=== PATIENT | female | born 1970 | race Two or more races ===

== ENCOUNTER 2017-07-13 16:15 | Inpatient (IN) | payer OTHER ==
[~2017-07-13] VITALS: Ht 149.9 cm; Wt 71.0 kg
--- NOTE | 2017-07-13 16:20 | NUR ---
CODE SEPSIS WAS CALLED BY DR GREEN. CODE SEPSIS PROTOCOL STARTED.
[2017-07-13] MEDS ORDERED: ACETAMINOPHEN 650 MG/20.3 ML LIQUID UDC PO ONE (16:34)
--- NOTE | 2017-07-13 16:36 | NUR ---
PT IS IN ROOM #1A. DR GREEN EVALUATED THE PT.
[2017-07-13] MEDS ORDERED: IBUPROFEN 600 MG TABLET ONE (16:44)
[2017-07-13] MEDS ORDERED: ACETAMINOPHEN ES 500 MG TABLET ONE (16:44)
[2017-07-13] MEDS ORDERED: CEFTRIAXONE 1 G VIAL ONE (16:44)
[2017-07-13] MEDS ORDERED: IBUPROFEN 600 MG TABLET PO ONE (16:45)
[2017-07-13] MEDS ORDERED: IV NS 1000 ML 1,000 ML IV ONE (16:45)
[2017-07-13] MEDS ORDERED: CEFTRIAXONE 1 G in IV DEXTROSE 5% 50 ML IV SCH (16:45)
[2017-07-13 16:46] LABS: BASOPHILS % (AUTO) 0.5 % (0.0-2.0); EOSINOPHILS % (AUTO) 0.6 % (0.0-7.0); HEMATOCRIT 39.1 % (31.2-41.9); HEMOGLOBIN 13.1 g/dL (10.9-14.3); LYMPHOCYTES # (AUTO) 0.8 K/uL (20.0-40.0); LYMPHOCYTES % (AUTO) 14.9 % (20.5-51.5); MEAN CORPUSCULAR HEMOGLOBIN 30.9 uug (24.7-32.8); MEAN CORPUSCULAR HGB CONC 34 g/dL (32.3-35.6); MEAN CORPUSCULAR VOLUME 92.1 fL (75.5-95.3); MONOCYTES % (AUTO) 0.5 % (0.0-11.0); NEUTROPHILS # (AUTO) 4.2 K/uL (1.8-8.9); NEUTROPHILS % (AUTO) 83.5 % (38.5-71.5); PLATELET COUNT (AUTO) 169 K/uL (179-408); RED BLOOD CELL COUNT(AUTO) 4.24 MIL/uL (3.63-4.92); WHITE BLOOD COUNT (AUTO) 5.1 K/uL (3.8-11.8)
[2017-07-13 16:54] LABS: CREATININE 1.2 mg/dL (0.6-1.3); POTASSIUM 3.4 mmol/L (3.5-5.1)
[2017-07-13 17:02] LABS: BILIRUBIN,TOTAL 0.5 mg/dL (0.2-1.0); TOTAL PROTEIN, SERUM 8.1 g/dL (6.4-8.2)
[2017-07-13] MEDS ORDERED: IV NORMAL SALINE 500 ML IV ONE (17:30)
[2017-07-13 17:50] LABS: *BILIRUBIN,URIN NEGATIVE (NEGATIVE); *BLOOD, URINE 3+ (NEGATIVE); *COLOR,URINE Orange (YELLOW); *KETONES,URINE NEGATIVE (NEGATIVE); *PROTEIN,URINE 2+ (NEGATIVE); LEUKOCYTE ESTERASE ,URINE 3+ (NEGATIVE); NITRITE, URINE POSITIVE (NEGATIVE); PH,URINE 6.5 (5.0-8.0); UGLUCOSE NEGATIVE (NEGATIVE)
[2017-07-13 18:01] LABS: *CLARITY,URINE CLOUDY (CLEAR)
[2017-07-13 18:04] LABS: BACTERIA,URINE FEW /HPF (NONE SEEN); RBC,URINE 50-80 /HPF (0-3); SQUAMOUS EPITHELIAL CELL,UR MODERATE /HPF (NONE SEEN); WBC,URINE 80-100 /HPF (0-3)
[2017-07-13] MEDS ORDERED: ALBUTEROL SULFATE 2.5 MG/3 ML NEBU ONE (18:34)
[2017-07-13] MEDS ORDERED: IPRATROPIUM BROMIDE 0.5 MG/2.5 ML NEBU ONE (18:35)
[2017-07-13] MEDS ORDERED: ALBUTEROL SULFATE 2.5 MG/ 0.5 ML NEBU NEB ONE (18:39)
[2017-07-13] MEDS ORDERED: IV NORMAL SALINE 250 ML IV ONE (18:45)
[2017-07-13] MEDS ORDERED: IPRATROPIUM BROMIDE 0.5 MG/2.5 ML NEBU NEB ONE (18:45)
[2017-07-13] MEDS: IV NS 1000 ML 1,000 ML IV PRN (18:53)
--- NOTE | 2017-07-13 18:56 | NUR ---
REPORT GIVEN TO RELATIONSHIP COUNSELORTEA TREE FARM WORKER.
--- NOTE | 2017-07-13 19:15 | NUR ---
report received from day shift RN. pt aox3, able to speak in clear and complete sentences. here with c/o fever, chills, and chest tightness. pt currently in no acute distress, hypotensive - ERMD made aware NS bolus given and carried out. pt in no acute distress, denies any current chest pain, respirations are even and unlabored.
[2017-07-13] MEDS ORDERED: IV NORMAL SALINE 500 ML BAG IV ONE (19:30)
[2017-07-13] MEDS ORDERED: MORPHINE SULFATE 2 MG/1 ML DISP.SYRIN IV PRN (20:30)
[2017-07-13] MEDS ORDERED: ONDANSETRON 4 MG/2 ML VIAL IV PRN (20:30)
--- NOTE | 2017-07-13 20:57 | NUR ---
CLINICAL PHARMACY NOTE:VANCOMYCIN Request for vancomycin dosing on 46 y/o female 4'11" 150lbs for UTI/sepsis Temp 104.6 BUN 12 Scr 1.2 WBC 5.1 also on Zosyn Start vancomycin 1gm ivbp q24h estimated trough 14. Will order trough level prior to 4th dose. Will continue to monitor
[2017-07-13] MEDS ORDERED: VANCOMYCIN IV 1 G in PREMIXED 0 EACH IV SCH (21:00)
--- NOTE | 2017-07-13 22:00 | NUR ---
UP IN COMMODE VOIDED ADEQ AMT. OF DARK CODI URINE. NOT IN ANY DISTRESS. Addendum: 07/14/17 at 0434 by BRAYAN PALM RN ABOVE CHARTING IS FOR 0.
[2017-07-13 22:30] VITALS: BP 78/47
[2017-07-13] MEDS ORDERED: NOREPINEPHRINE BITARTRATE 8 MG in IV DEXTROSE 5% 500 ML IV PRN (22:30)
--- NOTE | 2017-07-13 22:30 | NUR ---
ADMITTED FROM ER VIA VERNA, AAOX3 W/ ADMITTING DX OF SEPSIS & PYELONEPHRITIS. PT. BP-78/47, DR TEJADA AWARE W/ ORDER. LEVOPHED DRIP STARTED @ 5MCQ/MIN ON LAC. TEMP-110, FLUIDS PO WAS ENCOURAGED & GIVEN.C-SCOPE SR. O2 SAT 99% ON RM AIR. C/O HEADACHE, TYLENOL 650MG GIVEN PO. NOT IN ANY DISTRESS. REPOSITIONED HERSELF FOR COMFORTS.
[2017-07-13] MEDS ORDERED: NOREPINEPHRINE BITARTRATE 4 MG/4 ML VIAL IV ONE (22:36)
--- NOTE | 2017-07-13 22:37 | NUR ---
original report called at 2039 for pt to be admitted to [facility]. per charge nurse, pt's bp not stable for [facility]. ER MD aware of pt's bp's, pt asymptomatic. at 2199 call received from [facility] charge nurse per admitting MD pt to be admitted to CCU. report called at 0 and given to CCU nurse. pt in no acute distress, respirations even and unlabored. pt transferred via gurney on monitor and stable.
[2017-07-13 22:45] VITALS: BP 74/47
[2017-07-13 23:00] VITALS: BP 86/58
[2017-07-13] MEDS: ACETAMINOPHEN 325 MG TABLET PO PRN ×2 (23:00→23:53)
[2017-07-13] MEDS ORDERED: VANCOMYCIN IV 200 ML ONE (23:10)
[2017-07-13] MEDS ORDERED: PIPERACILLIN/TAZOBACTAM/D5W 50 ML IV ONE (23:10)
[2017-07-13] MEDS: POTASSIUM CHLORIDE 20 MEQ in IV NS 1000 ML 1,000 ML IV PRN (23:18)
[2017-07-13] MEDS: PIPERACILLIN/TAZOBACTAM/D5W 50 ML IV SCH (23:57)
[2017-07-14] VITALS (57 sets, daily range): BP systolic 81–122; BP diastolic 52–79
[2017-07-14 05:20] LABS: BASOPHILS % (AUTO) 0.2 % (0.0-2.0); EOSINOPHILS % (AUTO) 0.2 % (0.0-7.0); HEMOGLOBIN 11.1 g/dL (10.9-14.3); LYMPHOCYTES % (AUTO) 10.5 % (20.5-51.5); MEAN CORPUSCULAR HEMOGLOBIN 30.5 uug (24.7-32.8); MEAN CORPUSCULAR HGB CONC 34 g/dL (32.3-35.6); MEAN CORPUSCULAR VOLUME 90.5 fL (75.5-95.3); MONOCYTES # (AUTO) 0.7 K/uL (2.0-10.0); MONOCYTES % (AUTO) 3.5 % (0.0-11.0); NEUTROPHILS # (AUTO) 16.5 K/uL (1.8-8.9); NEUTROPHILS % (AUTO) 85.6 % (38.5-71.5); PLATELET COUNT (AUTO) 167 K/uL (179-408); RED BLOOD CELL COUNT(AUTO) 3.65 MIL/uL (3.63-4.92); WHITE BLOOD COUNT (AUTO) 19.3 K/uL (3.8-11.8)
[2017-07-14 05:35] LABS: BILIRUBIN,TOTAL 0.4 mg/dL (0.2-1.0); MAGNESIUM 1.6 mg/dL (1.8-2.4); POTASSIUM 3.5 mmol/L (3.5-5.1); TOTAL PROTEIN, SERUM 6.5 g/dL (6.4-8.2)
[2017-07-14] MEDS: ACETAMINOPHEN 325 MG TABLET PO PRN ×2 (05:52→12:49)
[2017-07-14] MEDS ORDERED: PIPERACILLIN/TAZOBACTAM/D5W 50 ML IV ONE (06:00)
--- NOTE | 2017-07-14 06:00 | NUR ---
refused bath. oral care done by herself. c/o r flank pain, medicated w/ morphine sulfate 2mg ivp given.
[2017-07-14] MEDS: PIPERACILLIN/TAZOBACTAM/D5W 50 ML IV SCH ×4 (06:03→23:59)
[2017-07-14] MEDS: MORPHINE SULFATE 4 MG/1 ML DISP.SYRIN IV PRN (06:09)
[2017-07-14] MEDS: PANTOPRAZOLE SODIUM 40 MG TABLET.DR PO SCH (06:35)
[2017-07-14] MEDS: IV NS 1000 ML 1,000 ML IV PRN (07:09)
--- NOTE | 2017-07-14 07:30 | NUR ---
Pt. A/A/Ox4. no s/s of distress noted,c/o on abdominal and flank cramping due menstr.period warm pack was given with good outcome.
[2017-07-14] MEDS: POTASSIUM CHLORIDE 20 MEQ in IV NS 1000 ML 1,000 ML IV PRN ×2 (09:17→20:18)
--- NOTE | 2017-07-14 10:45 | NUR ---
Family members at bedside,updated with pt.condition and plan of care.
[2017-07-14] MEDS ORDERED: MAGNESIUM OXIDE 400 MG TABLET PO ONE (13:15)
--- NOTE | 2017-07-14 15:01 | NUR ---
Pt.sleeping, BP on low side, MAP 60-70' no s/s of distress.
--- NOTE | 2017-07-14 15:42 | NUR ---
Clinical pharmacy note-Vancomycin dosing per pharmacy Subjective: To continue Vancomycin dosing on this patient for UTI(pyelonephritis) with sepsis(ER note, Coal Dumping Equipment Operator note not available yet). Objective: BUN 10 Scr 1.0 WBC 19.3 Temp 99 Assessment/Plan: Since renal function is improved, will change dose to 1 gram IV every 19hrs(second dose tonight at 1800) and draw trough by 4th dose-not ordered yet- for expected trough around 15. Will monitor renal function closely to adjust the dose if needed. Will follow daily.
--- NOTE | 2017-07-14 17:20 | NUR ---
Pt.was seen by and HAND TUFTER:Perla.
[2017-07-14] MEDS ORDERED: IBUPROFEN 400 MG TABLET PO PRN ×2 (17:30)
[2017-07-14] MEDS: IBUPROFEN 800 MG TABLET PO PRN (17:35)
[2017-07-14] MEDS ORDERED: VANCOMYCIN IV 1 G in PREMIXED 0 EACH IV SCH (18:00)
[2017-07-14] MEDS: ALBUTEROL SULFATE 2.5 MG/3 ML NEBU NEB PRN (19:24)
--- NOTE | 2017-07-14 20:00 | NUR ---
RECEIVED PT. AAOX3. DENIES PAIN THIS TIME.IVF NS W/ 20MEQ KCL @ 125CC/HR, CHANGED RATE TO 100CC/HR ORDERED. ON RM AIR W/ O2 SAT OF 98%. HAD LARGE BM THEN HS CARE DONE BY HER SELF. NOT IN ANY DISTRESS.
--- NOTE | 2017-07-14 22:00 | NUR ---
UP IN COMMODE, VOIDED TO [facility] AMT.
[2017-07-15] VITALS (17 sets, daily range): BP systolic 86–120; BP diastolic 52–82
[2017-07-15] MEDS: IBUPROFEN 800 MG TABLET PO PRN ×3 (01:49→22:28)
--- NOTE | 2017-07-15 05:00 | NUR ---
PT. HAS EXPIRATORY WHEEZING, RESP TX GIVEN BY RT.
[2017-07-15] MEDS: ALBUTEROL SULFATE 2.5 MG/3 ML NEBU NEB PRN (05:03)
[2017-07-15 05:10] LABS: BASOPHILS % (AUTO) 0.2 % (0.0-2.0); EOSINOPHILS # (AUTO) 0.3 K/uL (0.0-0.7); EOSINOPHILS % (AUTO) 2.2 % (0.0-7.0); HEMATOCRIT 30.3 % (31.2-41.9); HEMOGLOBIN 10.1 g/dL (10.9-14.3); LYMPHOCYTES # (AUTO) 2.2 K/uL (20.0-40.0); LYMPHOCYTES % (AUTO) 14.9 % (20.5-51.5); MEAN CORPUSCULAR HEMOGLOBIN 30.4 uug (24.7-32.8); MEAN CORPUSCULAR HGB CONC 33 g/dL (32.3-35.6); MEAN CORPUSCULAR VOLUME 91.6 fL (75.5-95.3); MONOCYTES # (AUTO) 0.7 K/uL (2.0-10.0); MONOCYTES % (AUTO) 4.6 % (0.0-11.0); NEUTROPHILS # (AUTO) 11.4 K/uL (1.8-8.9); NEUTROPHILS % (AUTO) 78.1 % (38.5-71.5); PLATELET COUNT (AUTO) 146 K/uL (179-408); RED BLOOD CELL COUNT(AUTO) 3.31 MIL/uL (3.63-4.92); WHITE BLOOD COUNT (AUTO) 14.6 K/uL (3.8-11.8)
[2017-07-15 05:19] LABS: CREATININE 0.8 mg/dL (0.6-1.3); POTASSIUM 3.8 mmol/L (3.5-5.1)
[2017-07-15] MEDS: PIPERACILLIN/TAZOBACTAM/D5W 50 ML IV SCH ×3 (05:45→17:16)
--- NOTE | 2017-07-15 06:00 | NUR ---
REFUSED AM CARE. BACK TO SLEEP. BP STABLE.
[2017-07-15] MEDS: PANTOPRAZOLE SODIUM 40 MG TABLET.DR PO SCH (06:29)
[2017-07-15] MEDS: POTASSIUM CHLORIDE 20 MEQ in IV NS 1000 ML 1,000 ML IV PRN ×2 (07:15→21:20)
--- NOTE | 2017-07-15 07:40 | NUR ---
REPORT RECEIVED.PT REMAINS AWAKE,ALERT.DENIES PAIN,DISCOMFORT.AM CARE WAS PROVIDED TO PT WITH MINIMAL ASSISTANCE.PT WAS ABLE TO AMBULATE IN ROOM.WILL CONTINUE TO MONITOR.UPDATED WITH PLAN OF CARE.
--- NOTE | 2017-07-15 09:30 | NUR ---
MEDICATED WITH MOTRIN 800 MG C/O HEADACHE.
[2017-07-15] MEDS: MORPHINE SULFATE 4 MG/1 ML DISP.SYRIN IV PRN (10:55)
--- NOTE | 2017-07-15 11:00 | NUR ---
MEDICATED WITH MORPHINE 2MG FOR HEADACHE.WILL CONTINUE TO MONITOR.
[2017-07-15] MEDS: LEVOFLOXACIN 500 MG/D5W 500 MG in PREMIXED 1 EACH IV SCH (19:14)
[2017-07-16 05:22] VITALS: BP 114/73
[2017-07-16] MEDS: PANTOPRAZOLE SODIUM 40 MG TABLET.DR PO SCH (06:27)
[2017-07-16 06:28] LABS: CREATININE 0.8 mg/dL (0.6-1.3); MAGNESIUM 1.8 mg/dL (1.8-2.4); PHOSPHOROUS 3.5 mg/dL (2.5-4.9); POTASSIUM 4.4 mmol/L (3.5-5.1)
[2017-07-16 06:44] LABS: BASOPHILS % (AUTO) 0.3 % (0.0-2.0); EOSINOPHILS # (AUTO) 0.2 K/uL (0.0-0.7); EOSINOPHILS % (AUTO) 2.3 % (0.0-7.0); HEMATOCRIT 32.1 % (31.2-41.9); HEMOGLOBIN 10.7 g/dL (10.9-14.3); LYMPHOCYTES # (AUTO) 2.2 K/uL (20.0-40.0); LYMPHOCYTES % (AUTO) 24.9 % (20.5-51.5); MEAN CORPUSCULAR HEMOGLOBIN 30.6 uug (24.7-32.8); MEAN CORPUSCULAR HGB CONC 33 g/dL (32.3-35.6); MEAN CORPUSCULAR VOLUME 91.6 fL (75.5-95.3); MONOCYTES # (AUTO) 0.4 K/uL (2.0-10.0); NEUTROPHILS % (AUTO) 67.5 % (38.5-71.5); PLATELET COUNT (AUTO) 168 K/uL (179-408); RED BLOOD CELL COUNT(AUTO) 3.51 MIL/uL (3.63-4.92)
[2017-07-16 06:56] LABS: WHITE BLOOD COUNT (AUTO) 8.9 K/uL (3.8-11.8)
[2017-07-16] MEDS: POTASSIUM CHLORIDE 20 MEQ in IV NS 1000 ML 1,000 ML IV PRN ×2 (07:33→18:12)
--- NOTE | 2017-07-16 07:38 | NUR ---
Received pt awake, alert and oriented time 4. No apparent s/s of SOB, distress or discomfort, pt states no pain. New IV hydration bag hanged at this time. bed at lowest position for safety and call light within reach for assistance. Noted pt able to walk and use restroom
[2017-07-16 11:45] VITALS: BP 146/89
--- NOTE | 2017-07-16 12:30 | NUR ---
Pt is noted to be sitting by the edge of the bed eating lunch, states pain on the right side of abdomen and requests Motrin. Pt is alert, and oriented times 4
[2017-07-16] MEDS: IBUPROFEN 800 MG TABLET PO PRN (12:38)
[2017-07-16 15:40] VITALS: BP 129/84
[2017-07-16] MEDS: MORPHINE SULFATE 4 MG/1 ML DISP.SYRIN IV PRN (16:03)
[2017-07-16] MEDS: LEVOFLOXACIN 500 MG/D5W 500 MG in PREMIXED 1 EACH IV SCH (18:12)
--- NOTE | 2017-07-16 18:30 | NUR ---
Pt has been compliant with nursing care and medication. Pt is aware of her procedure. No apparent s/s of any immediate distress, discomfort, pain or SOB.
[2017-07-16 20:00] VITALS: BP 115/82
--- NOTE | 2017-07-16 20:00 | NUR ---
Received patient from radiology. Oriented patient back to bed. A&O x 4. Ambulatory. C/O no pain or SOB. IVF and Abx infusing. No adverse reactions. Safety initiated. Call light within reach. Will continue to monitor.
[2017-07-17] MEDS ORDERED: METRONIDAZOLE 500 MG/NS 100ML 100 ML IV ONE (05:18)
[2017-07-17 05:37] VITALS: BP 146/84
--- NOTE | 2017-07-17 05:41 | NUR ---
Patient slept t/o shift. No c/o pain or discomfort. Patient remained A&O x 4. Ambulatory. BRP. IVF infusing on the left arm. IV ABx given with no adverse effects. Safety and comfort measures maintained t/o shift. Vital signs stable. All meds given as ordered. All needs met.
[2017-07-17] MEDS: PANTOPRAZOLE SODIUM 40 MG TABLET.DR PO SCH (06:01)
[2017-07-17] MEDS: METRONIDAZOLE 500 MG/NS 100ML 500 MG in PREMIXED 1 EACH IV SCH ×3 (06:01→22:31)
[2017-07-17 06:48] LABS: BASOPHILS % (AUTO) 0.4 % (0.0-2.0); EOSINOPHILS # (AUTO) 0.2 K/uL (0.0-0.7); EOSINOPHILS % (AUTO) 2.2 % (0.0-7.0); HEMATOCRIT 34.9 % (31.2-41.9); HEMOGLOBIN 11.7 g/dL (10.9-14.3); LYMPHOCYTES % (AUTO) 22.8 % (20.5-51.5); MEAN CORPUSCULAR HEMOGLOBIN 30.3 uug (24.7-32.8); MEAN CORPUSCULAR HGB CONC 34 g/dL (32.3-35.6); MEAN CORPUSCULAR VOLUME 90.6 fL (75.5-95.3); MONOCYTES # (AUTO) 0.6 K/uL (2.0-10.0); MONOCYTES % (AUTO) 7.5 % (0.0-11.0); NEUTROPHILS # (AUTO) 5.8 K/uL (1.8-8.9); NEUTROPHILS % (AUTO) 67.1 % (38.5-71.5); PLATELET COUNT (AUTO) 233 K/uL (179-408); RED BLOOD CELL COUNT(AUTO) 3.85 MIL/uL (3.63-4.92); WHITE BLOOD COUNT (AUTO) 8.6 K/uL (3.8-11.8)
[2017-07-17 07:33] LABS: BILIRUBIN,TOTAL 0.2 mg/dL (0.2-1.0); CREATININE 0.9 mg/dL (0.6-1.3); MAGNESIUM 1.6 mg/dL (1.8-2.4); PHOSPHOROUS 4.8 mg/dL (2.5-4.9); POTASSIUM 4.7 mmol/L (3.5-5.1); TOTAL PROTEIN, SERUM 6.9 g/dL (6.4-8.2)
[2017-07-17] MEDS: IBUPROFEN 800 MG TABLET PO PRN ×2 (07:55→18:37)
--- NOTE | 2017-07-17 08:00 | NUR ---
Awake, alert. oriented x 4, on moderate high back rest. IVF infusing. Complaining of severe headache. Ibuprofen given with breakfast
[2017-07-17] MEDS: POTASSIUM CHLORIDE 20 MEQ in IV NS 1000 ML 1,000 ML IV PRN ×2 (10:04→23:53)
[2017-07-17 11:23] VITALS: BP 133/72
--- NOTE | 2017-07-17 13:00 | NUR ---
Tolerating diet, feeling better
[2017-07-17 16:01] VITALS: BP 132/73
[2017-07-17] MEDS: MAGNESIUM SULFATE/D5W 100 ML IV SCH ×2 (16:07→17:09)
[2017-07-17] MEDS: LEVOFLOXACIN 500 MG/D5W 500 MG in PREMIXED 1 EACH IV SCH (18:35)
--- NOTE | 2017-07-17 18:37 | NUR ---
Complaining of headache, Motrin po given. Endorsed for further care
[2017-07-17 20:06] VITALS: BP 131/69
[2017-07-17] MEDS ORDERED: diphenhydrAMINE 50 MG CAPSULE PO PRN ×2 (23:15→23:30)
[2017-07-18 04:27] VITALS: BP 135/80
--- NOTE | 2017-07-18 04:50 | NUR ---
Last night pt requested something for sleep. C/O not being able to sleep while in the hospital. CHEMICAL ECONOMIST Jovan OK'd for pt to get 50mg Benadryl PO for insomnia. Pt able to sleep well through the night. No c/o pain or headache so far. Pt wants to note that she started her menstrual period July 11 and ended July 14. States last night (July 17) she was bleeding again "more than just spotting, like a normal period." No visit from CHEMICAL ECONOMIST or MD last night.
[2017-07-18] MEDS: METRONIDAZOLE 500 MG/NS 100ML 500 MG in PREMIXED 1 EACH IV SCH ×2 (06:16→13:26)
[2017-07-18] MEDS: PANTOPRAZOLE SODIUM 40 MG TABLET.DR PO SCH (06:16)
[2017-07-18 07:11] LABS: CREATININE 0.9 mg/dL (0.6-1.3); POTASSIUM 4.5 mmol/L (3.5-5.1)
[2017-07-18] MEDS: IBUPROFEN 800 MG TABLET PO PRN (10:36)
[2017-07-18] MEDS ORDERED: IBUP-1957 PO (11:31)
[2017-07-18] MEDS ORDERED: LEVO500T90 PO (11:31)
[2017-07-18 11:50] VITALS: BP 125/71
[2017-07-18 15:54] VITALS: BP 98/59
--- NOTE | 2017-07-18 16:22 | NUR ---
PATIENT DISCHARGED TO HOME. PATIENT IS ALERT, IN NO DISTRESS. BELONGING LIST SIGNED AND ACCOUNTED FOR. DISCHARGE INSTRUCTIONS/PATIENT TEACHINGS PROVIDED, PATIENT VERBALIZED UNDERSTANDING. COPY OF PRESCRIPTION PROVIDED. IV ACCESS AND ID BAND REMOVED. AWAITING FOR DAUGHTER TO DEHYDROGENATION CONVERTER OPERATOR.
--- NOTE | 2017-07-18 16:50 | NUR ---
Patient left the unit, ambulatory, in no distress, accompanied by daughter.
== END 2017-07-18 16:50 | disposition home or self-care (01) | DRG 871 ==
LOC: ER 16:15 → DOU 20:45 → CCU 22:10 → MED 07-15 18:15
PROVIDERS: ADMIT Internal Medicine; ATTEND Internal Medicine
DX: A41.9 Sepsis, unspecified organism (principal); R65.21 Severe sepsis with septic shock; E87.2 Acidosis; D69.6 Thrombocytopenia, unspecified; E83.42 Hypomagnesemia; E83.51 Hypocalcemia; E87.1 Hypo-osmolality and hyponatremia; N10 Acute pyelonephritis; J45.909 Unspecified asthma, uncomplicated; D64.9 Anemia, unspecified; E66.9 Obesity, unspecified; E87.6 Hypokalemia; E88.09 Other disorders of plasma-protein metabolism, not elsewhere classified; K76.89 Other specified diseases of liver; K81.1 Chronic cholecystitis; B96.20 Unspecified Escherichia coli [E. coli] as the cause of diseases classified elsewhere; Z68.31 Body mass index [BMI] 31.0-31.9, adult
CPT/HCPCS: 36415; 70030-TC; 71045; 76700; 78445; 83605; 83690; 83735; 84100; 84703; 85025; 85610; 87040; 87077; 87086; 93005; 94664; A4663; A9150; A9537; J0696; J1956; J2270; J2543; J3370; J3475; J3480; J3490; J3590; J7030; J7040; J7050; J7060; Q0163

== ENCOUNTER 2018-07-14 02:11 | Emergency (ER) | payer OTHER ==
[~2018-07-14] VITALS: Ht 147.3 cm; Wt 68.0 kg
[~2018-07-14 02:11] MED LIST: IBUP-1957 PO; LEVO500T90 PO
--- NOTE | 2018-07-14 02:15 | NUR ---
Pt. ambulated into ED w/ c/o mid-sternal CP x 2 hours, denies SOB/BLAIR/F/C/N/V/D, pt. reports hx. of kidney infection and has had similar type pain in the past, A/Ox4, RR even and unlabored, VSS, male scalehouse attendant at bedside, bed in low position, all pt. needs met,
--- NOTE | 2018-07-14 02:20 | NUR ---
Phleb. tech. at bedside to collect blood and urine specimines,
[2018-07-14] MEDS ORDERED: NIACIN 500 MG (02:21)
[2018-07-14] MEDS ORDERED: PROAIR HFA ORAL INH (200 PFS) (02:21)
[2018-07-14] MEDS ORDERED: ATORVASTATIN 20MG TABLETS (02:21)
[2018-07-14] MEDS ORDERED: PANTOPRAZOLE SODIUM 40 MG VIAL IV ONE (02:30)
[2018-07-14] MEDS ORDERED: MORPHINE SULFATE 4 MG/1 ML DISP.SYRIN IV ONE (02:30)
[2018-07-14] MEDS ORDERED: PANTOPRAZOLE SODIUM 40 MG VIAL ONE (02:33)
[2018-07-14] MEDS ORDERED: MORPHINE SULFATE 4 MG/1 ML DISP.SYRIN ONE (02:33)
[2018-07-14 02:36] LABS: BASOPHILS # (AUTO) 0.1 K/uL (0.0-8.0); BASOPHILS % (AUTO) 0.6 % (0.0-2.0); EOSINOPHILS # (AUTO) 0.7 K/uL (0.0-0.7); EOSINOPHILS % (AUTO) 5.9 % (0.0-7.0); HEMOGLOBIN 13.7 g/dL (10.9-14.3); LYMPHOCYTES # (AUTO) 4.1 K/uL (20.0-40.0); LYMPHOCYTES % (AUTO) 36.6 % (20.5-51.5); MEAN CORPUSCULAR HEMOGLOBIN 30.7 uug (24.7-32.8); MEAN CORPUSCULAR HGB CONC 34 g/dL (32.3-35.6); MEAN CORPUSCULAR VOLUME 91.5 fL (75.5-95.3); MONOCYTES # (AUTO) 0.8 K/uL (2.0-10.0); MONOCYTES % (AUTO) 7.5 % (0.0-11.0); NEUTROPHILS # (AUTO) 5.5 K/uL (1.8-8.9); NEUTROPHILS % (AUTO) 49.4 % (38.5-71.5); PLATELET COUNT (AUTO) 226 K/uL (179-408); RED BLOOD CELL COUNT(AUTO) 4.48 MIL/uL (3.63-4.92); WHITE BLOOD COUNT (AUTO) 11.2 K/uL (3.8-11.8)
[2018-07-14 02:43] LABS: CREATININE 0.8 mg/dL (0.6-1.3); POTASSIUM 3.6 mmol/L (3.5-5.1)
[2018-07-14 02:50] LABS: BILIRUBIN,DIRECT 0.1 mg/dL (0.0-0.2); BILIRUBIN,TOTAL 0.2 mg/dL (0.2-1.0); TOTAL PROTEIN, SERUM 8.1 g/dL (6.4-8.2)
[2018-07-14 02:57] LABS: *URINE HCG, QUAL NEGATIVE (NEGATIVE)
--- NOTE | 2018-07-14 03:12 | NUR ---
Rad. tech. at bedside for CXR,
--- NOTE | 2018-07-14 04:11 | NUR ---
Pt. resting in bed, IV site patent - no s/s infiltration/phlebitis, bed in low position, all pt. needs met,
--- NOTE | 2018-07-14 04:28 | NUR ---
Patient discharged to home in stable conditon. Written and verbal after care instructions given. Patient verbalizes understanding of instructions. Pt. d/c w/ prescriptions per MD order, all belongings w/ pt., ID band/IV removed, ambulated off unit w/ steady gait, NAD
== END 2018-07-14 04:31 | disposition home or self-care (01) ==
LOC: ER 02:11
DX: R07.89 Other chest pain (principal); J45.909 Unspecified asthma, uncomplicated; Z79.1 Long term (current) use of non-steroidal anti-inflammatories (NSAID); Z79.2 Long term (current) use of antibiotics; Z79.899 Other long term (current) drug therapy
CPT/HCPCS: 36415; 71045; 80048; 80076; 83690; 84484; 84703; 85025; 93005; 96374; 96375; 99283; C9113; J2270; 70030-TC; A4663